=== PATIENT | female | born 1950 | race Caucasian/White ===

== ENCOUNTER → 2016-10-27 | Outpatient (CLI) | payer OTHER | LOC: FIMAGING 07:26 | DX: Z12.31 Encounter for screening mammogram for malignant neoplasm of breast (principal) | CPT/HCPCS: G0202 ==

== ENCOUNTER → 2017-04-15 | Outpatient (CLI) | payer OTHER, MEDICARE | LOC: FIMAGING 17:01 | PROVIDERS: ATTEND Physician Assistant | DX: M25.532 Pain in left wrist (principal) ==

== ENCOUNTER → 2017-10-28 | Outpatient (CLI) | payer OTHER, MEDICARE | LOC: FIMAGING 16:11 | PROVIDERS: ATTEND Family Medicine | DX: Z12.31 Encounter for screening mammogram for malignant neoplasm of breast (principal) ==

== ENCOUNTER 2018-02-11 10:10 | Emergency (ER) | payer OTHER, MEDICARE ==
--- NOTE | 2018-02-11 12:03 | EDPHY ---
H & P Stated Complaint: Fell back off ~ 8inches ladder;hit head on cindy pot,lac,no LOC - Personal History Current Tetanus Diphtheria and Acellular Pertussis (TDAP): Unsure - Medical/Surgical History Hx Asthma: Yes - Social History Smoking Status: Never smoked Time Seen by Provider: 02/11/18 11:46 HPI/ROS: CHIEF COMPLAINT: Occipital head injury HISTORY OF PRESENT ILLNESS: 68-year-old female no anticoagulant use arrives via private vehicle complaining of blunt head injury and scalp laceration after she was working at her home, sustained a mechanical fall when the small step ladder she was on fell forward and she fell backward from a near standing position impacting a cindy pot sustaining laceration to right occipital region. No loss of consciousness. No nausea or vomiting. No amnesia. She is complaining of pain to the same location. Denies midline C-spine pain. Denies peripheral paresthesia, weakness, numbness. Denies chest pain. Denies dyspnea. This was a mechanical, non syncopal episode. PRIMARY CARE PROVIDER: REVIEW OF SYSTEMS: A ten point review of systems was performed and is negative with the exception of the items mentioned in the HPI PAST MEDICAL/SURGICAL HISTORY: no anticoagulant use, no relevant medical/ surgical history SOCIAL HISTORY: denies alcohol use at time of incident PHYSICAL EXAM 1) GENERAL: Well-developed, well-nourished, alert and oriented. Appears to be in no acute distress. Answering questions appropriately. Smiling GCS 15 2) HEAD: Normocephalic, right lower occipital region 3 cm laceration 3) HEENT: Pupils equal, round, reactive to light bilaterally. Negative Horners. Nasopharynx, oropharynx, clear. No deformity or angulation of nose. No septal hematoma. No rhinorrhea. No oral trauma. Ears bilaterally with normal tympanic membranes. No hemotympanum. No fluid or blood in the external auditory canal. No raccoon eyes. No Michelle sign. Teeth are normally aligned with no gross malocclusion, TMJ bilaterally nontender, facial bones nontender including the zygomatic arch, maxilla mandible. 4) NECK: No cervical collar is on. Posterior cervical spine is nontender, no stepoff, no effusion. Full range of motion which does not elicit any midline cervical spine pain, no posterior midline tenderness, no step-off. 5) LUNGS: Clear to auscultation bilaterally, no wheezes, no rhonchi, no retractions. No obvious signs of trauma. No chest wall pain. No flaring, no grunting. Moving symmetrically. No crepitus. 6) HEART: [Regular rate and rhythm, 7) ABDOMEN: No guarding, no rebound, no focal tenderness, no peritoneal signs, no signs of trauma, no ecchymosis 8) MUSCULOSKELETAL: Moving all extremities, no focal areas of tenderness, no obvious trauma. 9) BACK: Patient logrolled while holding inline traction.No midline vertebral tenderness, no fluctuance, no step-off, no obvious trauma, no visual or palpable abnormality. 10) SKIN: scalp laceration as above DIFFERENTIAL DIAGNOSIS: In no particular order, including but not limited to subarachnoid hemorrhage, migraine headache, tension headache and infectious causes such as meningitis, pharyngitis and sinusitis. The patient understands that this diagnosis is provisional and can never be 100% accurate. Usual and customary warnings were given concerning the clinical impression and all the patient's questions were answered. The patient was instructed to return to the emergency department should her symptoms worsen or return, or develop any new symptoms, otherwise to followup as directed in discharge instructions. This is a partial list of diagnoses considered. These considerations are based on history, physical exam, past history and reassessment. (Emery De Anda) Constitutional: Initial Vital Signs Temperature (C) 36.4 C 02/11/18 10:15 Heart Rate 87 02/11/18 10:15 Respiratory Rate 18 02/11/18 10:15 Blood Pressure 127/83 H 02/11/18 10:15 O2 Sat (%) 96 02/11/18 10:15 O2 Delivery Mode Room Air Allergies/Adverse Reactions: prednisone Allergy (Intermediate, Verified 02/11/18 10:20) "pancreatitis" hydrocodone bitartrate [From Vicodin] Allergy (Verified 02/11/18 10:20) SEVERE NAUSEA AND VOMITING oxycodone HCl [From Percocet] Allergy (Verified 02/11/18 10:20) SEVERE N&V oxycodone terephthalate [From Percodan] Allergy (Verified 02/11/18 10:20) SEVERE N&V thimerosal Allergy (Verified 02/11/18 10:20) GI ENVIRONMENTAL Allergy (Intermediate, Uncoded 08/26/11 17:45) NASAL CONGESTION/ASTHMA Home Medications: Medication Instructions Recorded LEVOTHYROXINE SODIUM 08/26/11 Levalbuterol Inhaler [Xopenex Hfa 200 puffs 08/26/11 Inhaler] Levalbuterol 0.63 mg [Xopenex 0.63 mg 02/11/18 0.63MG Neb (*)] Montelukast Sodium [Singulair 10 10 mg PO DAILY@1800 02/11/18 mg (*)] Medical Decision Making - Diagnostics Imaging Results: Imaging Impressions Head CT 02/11/18 12:01 Impression: 1. Normal brain. 2. Right occipital scalp hematoma. Results called and discussed with Emery De Anda, at 02/11/2018 12:38 Images reviewed myself (Emery De Anda) Procedures: 120 p.m. Procedure: Laceration repair. I explained the indications, risks and benefits for both laceration repair and anesthetic administration. Verbal consent was obtained from the patient. The laceration on the right lower occipital region was anesthetized using 0.5% bupivicaine with epinephrine. After anesthetic administered the patient was observed for a period of time and had no apparent adverse effects. The wound was cleaned, prepped, draped in normal sterile fashion and explored to its base. No foreign body seen, no foreign bodies palpated. There were no deep structures involved. No galea defects identified The wound was repaired with 5 cherri. The wound repair was complex. The procedure was performed by myself. Patient has been informed that scarring will occur, although efforts have been made to minimize this. (Emery De Anda) ED Course/Re-evaluation: 12:01 p.m.: Head CT ordered in this patient for trauma for the following indication: Greater than 65 years old, 1:02 p.m.: Re-evaluation. Discussed her negative imaging results. She is answering questions appropriately. Plan will be wound closure and discharged with usual customary head injury precautions and instructions. She feels comfortable being discharged. I saw this patient independently based on established practice protocols. Care of patient under supervision of secondary supervising physician Dr Eligio Barnes. (Emery De Anda) I did not see this patient while she was in the emergency department. However her care was discussed with the PA while the patient was in the department. I agree with treatment plan and management (MollyEligio Bryson) Departure - Departure Disposition: Home, Routine, Self-Care Clinical Impression: Head injury due to trauma Qualifiers: Encounter type: initial encounter Qualified Code(s): S09.90XA - Unspecified injury of head, initial encounter Occipital scalp laceration Qualifiers: Encounter type: initial encounter Qualified Code(s): S01.01XA - Laceration without foreign body of scalp, initial encounter Condition: Good Instructions: Laceration (ED), Head Injury (ED) Additional Instructions: ALTHOUGH THERE IS NO EVIDENCE OF SERIOUS HEAD INJURY AT THIS TIME, DELAYED SIGNS CAN APPEAR 24 TO 48 HOURS AFTER INJURY. PLEASE RETURN TO THE EMERGENCY DEPARTMENT (ED) IMMEDIATELY IF YOU HAVE INCREASED HEADACHE, PERSISTENT HEADACHE , VOMITING, WEAKNESS, CONFUSION OR VISUAL PROBLEMS. WE RECOMMEND THAT YOU DO NOT RESUME CONTACT SPORTS OR ACTIVITIES THAT TAKE COORDINATION OR BALANCE SUCH SKIING OR RIDING A BICYCLE UNTIL CLEARED TO DO SO BY YOUR DOCTOR OR BY A NEUROLOGIST. Referrals: Return, to the ER in 7 days for staple remove [Other] - As per Instructions
[2018-02-11 14:02] VITALS: BP 118/76
== END 2018-02-11 13:59 | disposition home or self-care (01) ==
PROC: 0HQ0XZZ Repair Scalp Skin, External Approach (ICD-10-PCS; principal; 2018-02-11)
DX: S01.01XA Laceration without foreign body of scalp, initial encounter (principal); W11.XXXA Fall on and from ladder, initial encounter; Y92.009 Unspecified place in unspecified non-institutional (private) residence as the place of occurrence of the external cause; Y99.8 Other external cause status; J45.909 Unspecified asthma, uncomplicated; Y93.89 Activity, other specified

== ENCOUNTER → 2018-11-01 | Outpatient (CLI) | payer OTHER, MEDICARE | LOC: FIMAGING 16:03 | PROVIDERS: ATTEND Family Medicine | DX: Z12.31 Encounter for screening mammogram for malignant neoplasm of breast (principal) ==

== ENCOUNTER 2018-12-13 10:30 | Day surgery (SDC) | payer OTHER, MEDICARE ==
[2018-12-13] MEDS ORDERED: LIDOCAINE 1% 5 ML SDV SC ONE (10:33)
--- NOTE | 2018-12-13 10:54 | PDGENHP ---
History & Physical Chief Complaint: wants ILR out Relevant Physical Exam: [id number] rrr [id number] Cardiorespiratory Assessment: ILR at EOL, will remove. Patient does not want new ILR
--- NOTE | 2018-12-13 12:03 | EPPROC ---
Electrophysiology Procedure Note: [facility] - Microstrip Planar Antennastronic ILR explant Consent on chart Anesthesia - Local only Sterile prep. ILR removed using blunt and sharp dissection. 2 cherri applied. No complications.
== END 2018-12-13 12:30 | disposition home or self-care (01) ==
LOC: FCATH 10:30
PROVIDERS: ATTEND Internal Medicine Cardiovascular Disease
PROC: 0JPT02Z Removal of Monitoring Device from Trunk Subcutaneous Tissue and Fascia, Open Approach (ICD-10-PCS; principal; 2018-12-13)
DX: Z45.09 Encounter for adjustment and management of other cardiac device (principal)